=== PATIENT | male | born 1995 | race African-American/Black ===

== ENCOUNTER 2017-08-06 21:40 | Emergency (ER) | payer BC ==
[~2017-08-06 21:40] MED LIST: ISOVUE-370 76%-LOCM 1 ML ONE
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
[2017-08-06] MEDS ORDERED: Ondansetron HCl/PF 4 MG/2 ML Vial ONE (22:31)
[2017-08-06] MEDS ORDERED: Morphine 4 MG/ML VIAL ONE (22:31)
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
[2017-08-06 22:46] LABS: Lactic Acid - Sepsis 1.1 mmol/L (0.5-2.2)
[2017-08-06 22:54] LABS: #Basophils 0.1 thou/uL (0.0-0.2); #Lymphocytes 2.4 thou/uL (1.20-3.40); #Monocytes 0.6 thou/uL (0.11-0.59); #Neutrophils 5.3 thou/uL (1.40-6.50); %Eosinophils 0.4 % (0.0-10.0); %Monocytes 7.6 % (0.0-10.0); Hematocrit 41.4 % (42.0-52.0); Macrocytosis SLIGHT = 6-15 cells (100X) (0-5/hpf); Mean Platelet Volume 6.7 fL (7.4-10.4); Red Blood Cell (RBC) Count 3.95 mill/uL (4.70-6.10); White Blood Cell (WBC) Count 8.5 thou/uL (4.8-10.8)
[2017-08-06 22:56] LABS: ALT (SGPT) 20 U/L (8-55); AST (SGOT) 23 U/L (5-34); Alkaline Phosphatase 63 U/L (40-150); Anion Gap 10 mmol/L (10-20); BUN (Urea Nitrogen) 18 mg/dL (8.9-20.6); Bilirubin, Total 0.7 mg/dL (0.2-1.2); Calc. Creatinine Clearance 0 mL/min (70-130); Calcium 9.2 mg/dL (7.8-10.44); Carbon Dioxide 26 mmol/L (22-29); Chloride 105 mmol/L (98-107); Estimated GFR-MDRD Greater than 90; Globulin 2.7 g/dL (2.4-3.5); Protein, Total 6.5 g/dL (6.0-8.3)
[2017-08-06] MEDS ORDERED: Ketorolac Tromethamine 30 MG/ML VIAL ONE (22:58)
[2017-08-06 23:15] LABS: Troponin I Less than 0.010 ng/mL (< 0.028)
[2017-08-06 23:26] LABS: Bilirubin Negative (Negative); Blood, Urine Negative (Negative); Glucose, Urine (Dipstick) Negative (Negative); Ketone, Urine Negative (Negative); Nitrite Negative (Negative); Protein, Urine (Dipstick) Negative (Neg-Trace); Urobilinogen 0.2 mg/dL (0.2-1.0)
--- NOTE | 2017-09-14 11:21 | EKG ---
Test Reason : Blood Pressure : / mmHG Vent. Rate : 063 BPM Atrial Rate : 063 BPM P-R Int : 158 ms QRS Dur : 076 ms QT Int : 378 ms P-R-T Axes : 018 079 037 degrees QTc Int : 386 ms Normal sinus rhythm Normal ECG Confirmed by CRYSTAL VIZCAINO M.D. ([id number]), loan expeditor ADRIEL ARCINIEGA ([id number]) on 09/14/2017 11:21:19 AM Referred By: Confirmed By:CRYSTAL VIZCAINO M.D.
--- NOTE | 2017-09-14 11:21 | EKG ---
Test Reason : Blood Pressure : / mmHG Vent. Rate : 079 BPM Atrial Rate : 079 BPM P-R Int : 156 ms QRS Dur : 074 ms QT Int : 352 ms P-R-T Axes : 029 087 048 degrees QTc Int : 403 ms Demand pacemaker; interpretation is based on intrinsic rhythm Sinus rhythm with sinus arrhythmia with occasional Premature ventricular complexes ST elevation, consider early repolarization Borderline ECG Confirmed by CRYSTAL VIZCAINO M.D. ([id number]), newspaper managing editor ADRIEL ARCINIEGA ([id number]) on 09/14/2017 11:21:14 AM Referred By: Confirmed By:CRYSTAL VIZCAINO M.D.
== END 2017-08-07 00:31 | disposition home or self-care (01) ==
LOC: ERS 21:40
DX: S20.219A Contusion of unspecified front wall of thorax, initial encounter (principal); J45.909 Unspecified asthma, uncomplicated; V80.919A Animal-rider injured in unspecified transport accident, initial encounter
CPT/HCPCS: 36415; 70450; 71010; 71260; 72125; 74177; 80053; 81003; 82553; 83605; 84484; 85025; 86850; 86900; 86901; 93005; 96361; 96374; 96375; J1885; J2270; J2405

== ENCOUNTER 2018-02-06 19:15 | Emergency (ER) | payer BC ==
[2018-02-06] MEDS ORDERED: cefTRIAXone\\ROCEPHIN 250 MG VIAL ONE (22:02)
[2018-02-06] MEDS ORDERED: Azithromycin 250 MG TAB ONE (22:02)
[2018-02-06] MEDS ORDERED: Lidocaine 1% PF 5 ML VIAL ONE (22:11)
[2018-02-09 04:22] LABS: Chlamydia by PCR DETECTED (NotDetected); GC by PCR Not Detected (NotDetected)
== END 2018-02-06 22:42 | disposition home or self-care (01) ==
LOC: ERS 19:15
DX: Z20.2 Contact with and (suspected) exposure to infections with a predominantly sexual mode of transmission (principal); J45.909 Unspecified asthma, uncomplicated
CPT/HCPCS: 87491; 87591; 96372; J0696; J2001

== ENCOUNTER 2018-06-03 18:45 | Emergency (ER) | payer BC, SELFPAY | END 2018-06-03 20:00 | disposition home or self-care (01) | LOC: ERS 18:45 | DX: J06.9 Acute upper respiratory infection, unspecified (principal); J45.909 Unspecified asthma, uncomplicated | CPT/HCPCS: 99283 ==

== ENCOUNTER 2018-08-19 11:04 | Emergency (ER) | payer SELFPAY | END 2018-08-19 11:18 | disposition home or self-care (01) | LOC: ERS 11:04 | DX: N34.2 Other urethritis (principal); J45.909 Unspecified asthma, uncomplicated | CPT/HCPCS: 99281 ==

== ENCOUNTER 2018-08-19 14:26 | Emergency (ER) | payer SELFPAY ==
[2018-08-19] MEDS ORDERED: cefTRIAXone\\ROCEPHIN 250 MG VIAL ONE (14:47)
[2018-08-19] MEDS ORDERED: Azithromycin 250 MG TAB ONE (14:47)
[2018-08-19] MEDS ORDERED: Lidocaine 1% (PF) 30 ML VIAL ONE (14:47)
== END 2018-08-19 15:00 | disposition home or self-care (01) ==
LOC: ERS 14:26
DX: A64 Unspecified sexually transmitted disease (principal); J45.909 Unspecified asthma, uncomplicated
CPT/HCPCS: 96372; J0696; J2001

== ENCOUNTER 2018-09-12 08:38 | Emergency (ER) | payer SELFPAY ==
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
== END 2018-09-12 09:56 | disposition home or self-care (01) ==
LOC: ERS 08:38
DX: S30.0XXA Contusion of lower back and pelvis, initial encounter (principal); J45.909 Unspecified asthma, uncomplicated; V80.010A Animal-rider injured by fall from or being thrown from horse in noncollision accident, initial encounter
CPT/HCPCS: 72100

== ENCOUNTER 2018-09-16 00:34 | Emergency (ER) | payer SELFPAY ==
[2018-09-16] MEDS ORDERED: Ketorolac Tromethamine 60 MG/2 ML VIAL ONE (01:14)
== END 2018-09-16 01:29 | disposition home or self-care (01) ==
LOC: ERS 00:34
DX: S89.91XA Unspecified injury of right lower leg, initial encounter (principal); J45.909 Unspecified asthma, uncomplicated; X50.1XXA Overexertion from prolonged static or awkward postures, initial encounter
CPT/HCPCS: 96372; J1885

== ENCOUNTER 2018-09-30 | Emergency (ER) | payer SELFPAY ==
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
== END 2018-09-30 00:54 | disposition home or self-care (01) ==
LOC: ERS
DX: S40.012A Contusion of left shoulder, initial encounter (principal); J45.909 Unspecified asthma, uncomplicated; X50.9XXA Other and unspecified overexertion or strenuous movements or postures, initial encounter; Y93.61 Activity, american tackle football

== ENCOUNTER 2019-01-18 19:16 | Emergency (ER) | payer SELFPAY ==
[2019-01-18] MEDS ORDERED: Adacel (T-DAP) 0.5 ML SYRINGE ONE (19:36)
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
[2019-01-18] MEDS ORDERED: HYDROcodone/Acetaminophen 5/325 mg Tablet ONE (20:05)
[2019-01-18] MEDS ORDERED: Bacitracin Zinc 1 Packet ONE (20:10)
== END 2019-01-18 20:34 | disposition home or self-care (01) ==
LOC: ERS 19:16
DX: S06.9X1A Unspecified intracranial injury with loss of consciousness of 30 minutes or less, initial encounter (principal); S01.01XA Laceration without foreign body of scalp, initial encounter; J45.909 Unspecified asthma, uncomplicated; W22.8XXA Striking against or struck by other objects, initial encounter
CPT/HCPCS: 70450; 72125; 90471; 90715

== ENCOUNTER 2019-09-05 14:52 | Emergency (ER) | payer SELFPAY ==
[2019-09-05] MEDS ORDERED: Adacel (T-DAP) 0.5 ML SYRINGE ONE (15:22)
== END 2019-09-05 15:28 | disposition home or self-care (01) ==
LOC: ERS 14:52
DX: S41.152A Open bite of left upper arm, initial encounter (principal); S00.81XA Abrasion of other part of head, initial encounter; I10 Essential (primary) hypertension; Z23 Encounter for immunization; W50.3XXA Accidental bite by another person, initial encounter
CPT/HCPCS: 90471; 90715

== ENCOUNTER 2020-02-18 | Emergency (ER) | payer SELFPAY | END 2020-02-18 00:45 | disposition home or self-care (01) | LOC: ERS | DX: S00.81XA Abrasion of other part of head, initial encounter (principal); R21 Rash and other nonspecific skin eruption; V29.9XXA Motorcycle rider (driver) (passenger) injured in unspecified traffic accident, initial encounter | CPT/HCPCS: 99281 ==

== ENCOUNTER 2020-02-19 01:19 | Emergency (ER) | payer SELFPAY | END 2020-02-19 02:31 | disposition home or self-care (01) | LOC: ERS 01:19 | DX: S01.81XD Laceration without foreign body of other part of head, subsequent encounter (principal); X58.XXXD Exposure to other specified factors, subsequent encounter ==

== ENCOUNTER 2020-07-25 12:35 | Emergency (ER) | payer SELFPAY ==
[2020-07-25] MEDS ORDERED: Ibuprofen 800 MG TAB ONE (13:06)
[2020-07-25 23:04] LABS: SARS-CoV-2 MS2 Positive; SARS-CoV-2 N Gene Negative; SARS-CoV-2 S Gene Negative; SARS-CoV-2 by NAA Not Detected (NotDetected); SARS-CoV-2 orf1ab Negative
== END 2020-07-25 13:52 | disposition home or self-care (01) ==
LOC: ERS 12:35
DX: J02.9 Acute pharyngitis, unspecified (principal); H69.81 Other specified disorders of Eustachian tube, right ear; H61.22 Impacted cerumen, left ear; Z20.828 Contact with and (suspected) exposure to other viral communicable diseases
CPT/HCPCS: 87081; 87430; 87635; 99284; U0003

== ENCOUNTER 2020-09-10 11:52 | Emergency (ER) | payer SELFPAY ==
[2020-09-10 18:09] LABS: SARS-CoV-2 MS2 Positive; SARS-CoV-2 N Gene Negative; SARS-CoV-2 S Gene Negative; SARS-CoV-2 by NAA Not Detected (NotDetected); SARS-CoV-2 orf1ab Negative
== END 2020-09-10 12:45 | disposition home or self-care (01) ==
LOC: ERS 11:52
DX: J20.9 Acute bronchitis, unspecified (principal); J45.909 Unspecified asthma, uncomplicated; Z20.828 Contact with and (suspected) exposure to other viral communicable diseases
CPT/HCPCS: 87635; 99283; U0003

== ENCOUNTER 2021-06-15 14:54 | Emergency (ER) | payer SELFPAY ==
[2021-06-15 16:04] LABS: #Basophils 0.1 thou/uL (0.0-0.2); #Eosinphils 0.1 thou/uL (0.0-0.7); #Lymphocytes 2.1 thou/uL (1.20-3.40); #Monocytes 0.8 thou/uL (0.11-0.59); #Neutrophils 4.9 thou/uL (1.40-6.50); %Basophils 0.7 % (0.0-1.0); %Eosinophils 0.9 % (0.0-10.0); %Lymphocytes 26.9 % (21.0-51.0); %Neutrophils 61.5 % (42.0-75.0); Hemoglobin 14.9 g/dL (14.0-18.0); Mean Corpuscular HGB CONC 34.7 g/dL (32.0-36.0); Mean Corpuscular Hemoglobin 35.2 pg (27.0-31.0); Mean Platelet Volume 6.9 fL (7.4-10.4); Platelet Count 328 thou/uL (130-400); RBC Distribution Width 10.6 % (11.5-14.5); Red Blood Cell (RBC) Count 4.24 mill/uL (4.70-6.10)
[2021-06-15 16:22] LABS: ALT (SGPT) 34 U/L (8-55); AST (SGOT) 23 U/L (5-34); Albumin 4.2 g/dL (3.5-5.0); Alkaline Phosphatase 71 U/L (40-110); Anion Gap 13 mmol/L (10-20); BUN (Urea Nitrogen) 9 mg/dL (8.9-20.6); Bilirubin, Total 0.6 mg/dL (0.2-1.2); CK (CPK) 280 U/L (30-200); Calc. Creatinine Clearance 0 mL/min (70-130); Calcium 9.5 mg/dL (7.8-10.44); Carbon Dioxide 26 mmol/L (22-29); Chloride 108 mmol/L (98-107); Globulin 3.1 g/dL (2.4-3.5); Glucose 79 mg/dL (70-105); Potassium 3.8 mmol/L (3.5-5.1); Protein, Total 7.3 g/dL (6.0-8.3); Sodium 143 mmol/L (136-145)
[2021-06-15 16:25] LABS: Amphetamine Detected (NotDetected); Barbiturates Screen Not Detected (NotDetected); Benzodiazepine Screen Not Detected (NotDetected); Cocaine Metabolite Screen Not Detected (NotDetected); Methadone Not Detected (NotDetected); Methamphetamine Detected (NotDetected); Opiate Screen Not Detected (NotDetected); Oxycodone Screen Not Detected (NotDetected); Phencyclidine (PCP) Not Detected (NotDetected); THC/Cannabinoid Screen Not Detected (NotDetected); Tricyclic Screen Not Detected (NotDetected)
[2021-06-15] MEDS ORDERED: Lidocaine 1% PF 5 ML VIAL ONE (16:34)
[2021-06-15] MEDS ORDERED: cefTRIAXone\\ROCEPHIN 500 MG VIAL ONE (16:34)
[2021-06-17 16:14] LABS: Chlam.trachomatis by PCR,Urine Not Detected (NotDetected)
== END 2021-06-15 17:35 | disposition home or self-care (01) ==
LOC: ERS 14:54
DX: N34.2 Other urethritis (principal)
CPT/HCPCS: 36415; 80053; 80306; 82550; 85025; 87491; 87591; 96372; 99283; J0696

== ENCOUNTER 2021-06-20 02:23 | Emergency (ER) | payer SELFPAY | END 2021-06-20 03:07 | disposition home or self-care (01) | LOC: ERS 02:23 | DX: K03.81 Cracked tooth (principal) | CPT/HCPCS: 99282 ==

== ENCOUNTER 2021-06-28 00:41 | Emergency (ER) | payer SELFPAY | END 2021-06-28 01:41 | disposition home or self-care (01) | LOC: ERS 00:41 | DX: R07.89 Other chest pain (principal); J45.901 Unspecified asthma with (acute) exacerbation | CPT/HCPCS: 71045; 93005 ==

== ENCOUNTER 2021-07-30 23:19 | Emergency (ER) | payer SELFPAY ==
[2021-07-30] MEDS ORDERED: Ketorolac Tromethamine 30 MG/ML VIAL ONE (23:46)
== END 2021-07-31 00:04 | disposition home or self-care (01) ==
LOC: ERS 23:19
DX: R07.81 Pleurodynia (principal)
CPT/HCPCS: 71045; 93005; 96372; J1885

== ENCOUNTER 2021-08-01 18:43 | Emergency (ER) | payer SELFPAY | END 2021-08-01 22:31 | disposition home or self-care (01) | LOC: ERS 18:43 | DX: J02.9 Acute pharyngitis, unspecified (principal); R13.10 Dysphagia, unspecified; R51.9 Headache, unspecified | CPT/HCPCS: 87081; 87430; 99284 ==

== ENCOUNTER 2021-09-14 02:50 | Emergency (ER) | payer SELFPAY ==
[2021-09-14] MEDS ORDERED: Ondansetron PF 4 MG/2 ML Vial ONE ×2 (03:13→03:14)
[2021-09-14 03:24] LABS: #Lymphocytes 3.1 thou/uL (1.20-3.40); #Monocytes 0.9 thou/uL (0.11-0.59); #Neutrophils 3.2 thou/uL (1.40-6.50); %Basophils 0.4 % (0.0-1.0); %Eosinophils 0.6 % (0.0-10.0); %Lymphocytes 42.6 % (21.0-51.0); %Monocytes 12.4 % (0.0-10.0); Hemoglobin 14.2 g/dL (14.0-18.0); Mean Corpuscular HGB CONC 34.8 g/dL (32.0-36.0); Mean Corpuscular Hemoglobin 35.3 pg (27.0-31.0); Platelet Count 266 thou/uL (130-400); RBC Distribution Width 10.3 % (11.5-14.5); Red Blood Cell (RBC) Count 4.02 mill/uL (4.70-6.10); White Blood Cell (WBC) Count 7.2 thou/uL (4.8-10.8)
[2021-09-14] MEDS ORDERED: Haloperidol Lactate 5 MG/ML VIAL ONE (03:25)
[2021-09-14 03:46] LABS: Acetaminophen Less than 6.0 mcg/mL (10.0-30.0); Alcohol 186 mg/dL (Less than 10); Salicylate Less than 8.0 mg/dL (15.0-30.0)
[2021-09-14 05:33] LABS: Bacteria/HPF None Seen HPF (None Seen); Bilirubin Negative (Negative); Blood, Urine Negative (Negative); Clarity Clear (Clear); Glucose, Urine (Dipstick) Normal (Negative); Ketone, Urine Trace mg/dL (Negative); Leukocyte Negative Leu/uL (Negative); Nitrite Negative (Negative); Protein, Urine (Dipstick) 30 mg/dL (Neg-Trace); RBC/HPF None Seen HPF (0-3); Specific Gravity, Urine 1.035 (1.002-1.036); Squamous Epithelial None Seen HPF (0-3); Urobilinogen Normal mg/dL (Less than 2); WBC/HPF 0-3 HPF (0-3); pH, Urine 5.5 (5.0-9.0)
[2021-09-14 05:41] LABS: Amphetamine Detected (NotDetected); Barbiturates Screen Not Detected (NotDetected); Benzodiazepine Screen Not Detected (NotDetected); Cocaine Metabolite Screen Not Detected (NotDetected); Methadone Not Detected (NotDetected); Methamphetamine Detected (NotDetected); Opiate Screen Not Detected (NotDetected); Oxycodone Screen Not Detected (NotDetected); Phencyclidine (PCP) Not Detected (NotDetected); THC/Cannabinoid Screen Not Detected (NotDetected); Tricyclic Screen Not Detected (NotDetected)
== END 2021-09-14 07:01 | disposition home or self-care (01) ==
LOC: ERS 02:50
DX: F10.129 Alcohol abuse with intoxication, unspecified (principal); Y90.6 Blood alcohol level of 120-199 mg/100 ml
CPT/HCPCS: 80306; 80307; 81003; 81015; 85025; 93005; 96374; 96375; J1630; J2405